=== PATIENT | female | born 1950 | race Caucasian/White ===

== ENCOUNTER → 2016-07-20 | Outpatient (CLI) | payer OTHER ==
[2016-07-20 12:48] LABS: BASOPHILS # (AUTO) 0.06 10*3/UL; BASOPHILS % (AUTO) 0.7 % (0-1); EOSINOPHILS # (AUTO) 0.31 10*3/UL; EOSINOPHILS % (AUTO) 3.9 % (0-8); HEMATOCRIT 40.4 % (37.0-47.0); LYMPHOCYTES # (AUTO) 2.13 10*3/uL; MEAN CORPUSCULAR HEMOGLOBIN 31.7 PG (27-31); MEAN CORPUSCULAR HGB CONC 32.2 g/dL (33-37); MEAN CORPUSCULAR VOLUME 98.5 FL (81-99); MEAN PLATELET VOLUME 9.5 FL (7.4-12.2); MONOCYTES # (AUTO) 0.87 10*3/UL (0.3-0.8); MONOCYTES % (AUTO) 10.8 % (5-15); NEUTROPHILS # (AUTO) 4.64 10*3/UL; NEUTROPHILS % (AUTO) 57.9 % (50-80)
[2016-07-20 13:08] LABS: PLATELET MORPHOLOGY COMMENT NORMAL MORPHOLOGY (NORM); RBC MORPHOLOGY COMMENT NORMAL MORPHOLOGY (NORM); WBC MORPHOLOGY COMMENT NORMAL MORPHOLOGY (NORM)
[2016-07-20 13:20] LABS: BLOOD UREA NITROGEN 14 mg/dL (7-22); BUN/CREATININE RATIO 23.33 (6-20); CALCIUM 10.7 mg/dL (8.7-10.7); EST GLOMERULAR FILTRATION > 60 (>60 ml/min/1.73m(2)); SERUM ALBUMIN 4.4 g/dL (3.5-4.8)
[2016-07-20 13:25] LABS: HEMOGLOBIN A1C 6.49 % (4.2-6.0)
[2016-07-20 14:28] LABS: CREATININE, URINE 59.8 MG/DL (15-500)
== END ==
LOC: MOB LAB 11:48
DX: I10 Essential (primary) hypertension (principal); E83.52 Hypercalcemia; R73.9 Hyperglycemia, unspecified; E78.5 Hyperlipidemia, unspecified
CPT/HCPCS: 36415; 80053; 82043; 82306; 83036; 83970; 84100; 85025

== ENCOUNTER → 2016-09-29 | Outpatient (CLI) | payer OTHER | LOC: MMPC 11:11 | DX: M25.561 Pain in right knee (principal); E21.3 Hyperparathyroidism, unspecified; E78.5 Hyperlipidemia, unspecified; E03.9 Hypothyroidism, unspecified; I10 Essential (primary) hypertension; E66.9 Obesity, unspecified; Z86.010 Personal history of colon polyps | CPT/HCPCS: 99213; G0463 ==

== ENCOUNTER → 2016-10-05 | Outpatient (CLI) | payer OTHER ==
--- NOTE | 2016-10-06 13:14 | DI ---
[facility] PARATHYROID SPECT,10/05/2016 8:12 AM: Clinical History: Hyperparathyroidism. Previous Exam: None at this facility. Radiopharmaceutical: Images are obtained through the neck region at 15 minutes, 2 hours and 4 hours a fter intravenous administration of 15.0 mCi of technetium 99m sestamibi Findings: SPECT images are obtained through the neck. There is increased uptake involving the submandibular glands and parotid glands. There is also some d iffuse increased uptake in the thyroid likely due to some free pertechnetate. There is a large area of increased uptake involving the right lobe of the thyroid compared with the l eft. This is focally increased, but does not match the level of the submandibular glands. Impression: Increased uptake in a large area of the right thyroid lobe. This could represent a large hyperfunctio janice parathyroid adenoma. It is somewhat obscured by the fact that there is some free technetium whic h is demonstrating increased uptake of both lobes of the thyroid causing somewhat of a lack of focali ty. There is no evidence of ectopic thyroid tissue.
== END ==
LOC: NM 07:48
DX: E21.3 Hyperparathyroidism, unspecified (principal)
CPT/HCPCS: 78072; A9500

== ENCOUNTER → 2016-12-02 | Outpatient (CLI) | payer OTHER | LOC: SLEEP LAB 19:53 | DX: G47.33 Obstructive sleep apnea (adult) (pediatric) (principal); G47.34 Idiopathic sleep related nonobstructive alveolar hypoventilation | CPT/HCPCS: 95811 ==